=== PATIENT | female | born 1960 | race Caucasian/White ===

== ENCOUNTER 2020-05-27 15:23 | Day surgery (SDC) | payer BC, SELFPAY ==
[2020-05-27] VITALS (10 sets, daily range): BP systolic 110–146; BP diastolic 71–86; PULSE 18–92; RESP 12–66; TEMP 36.2–37; O2SAT 94–100; BMI 24.2
[2020-05-27] MEDS: LACTATED RINGERS 1,000 ML 30 ML IV CONT ×2 (15:05→17:49)
--- NOTE | 2020-05-27 15:47 | WPDANESEPPF ---
Anes - Initial Pre Proc Eval Procedure: Operation Date: 05/27/20 16:00 Proposed Procedures p Incision And Drainage Multiple Bite Wounds Right Hand - Earnest Garcia MD Date/Time: 05/27/20 15:47 Surgeon: Earnest Garcia MD Pre Op Diagnosis: Dog Bites Right Hand Patient Data Age: 60 Gender: F Height: Weight: Last Vital Signs Temp 37.0 C 05/27/20 14:51 Pulse 84 05/27/20 14:51 Resp 16 05/27/20 14:51 BP 129/86 05/27/20 14:51 Pulse Ox 100 05/27/20 14:51 Allergies Allergy/AdvReac Type Severity Reaction Status Date / Time codeine AdvReac Mild Nausea Verified 05/27/20 15:28 hydrocodone AdvReac Mild Nausea Verified 05/27/20 15:28 oxycodone [From Percocet] AdvReac Mild Nausea Verified 05/27/20 15:28 Home Medications Medication Instructions Recorded Confirmed Type cholecalciferol (vitamin D3) 2,000 unit PO DAILY 08/12/19 05/27/20 History levothyroxine 100 mcg PO DAILY 08/12/19 05/27/20 History amoxicillin-pot clavulanate 1 tablet PO BID 05/27/20 05/27/20 History Patient hx anesthesia problems: post op nausea/vomiting Family hx anesthesia problems: none PMFSH Past Medical History Medical History Breast CA Hypothyroid Anes - Eval Final PreProcedure Day of Procedure 05/27/20 15:47 Patient weight: normal Heart: regular rate and rhythm Lungs: clear to auscultation Airway: Mallampati scale class II Neurological: alert and oriented Last oral intake: >/= 8 hours ASA classification: II Emergent: no Anesthetic plan: proceed Anesthesia type and monitoring: general LMA and standard monitoring Informed Consent: The patient's anesthetic plan and its attendant risks and benefits were discussed with the patient/family/POA. Questions were solicited and answers provided to the satisfaction of the patient/family/POA.
[2020-05-27] MEDS: SCOPOLAMINE 1.5 MG PATCH TRANSDERM (15:58)
[2020-05-27] MEDS: ceFAZolin 2 GM/D5W 50 ML 2 GM/50 ML BAG IVPB (16:35)
[2020-05-27] MEDS: LIDO 1%/EPINEPHRINE 1:100,000 20 ML VIAL INFILTRATE (17:04)
[2020-05-27] MEDS: KETOROLAC 30 MG/ML VIAL (*BKC) IV PUSH (17:32)
--- NOTE | 2020-05-27 17:55 | PM.OP ---
Procedure Note - Brief Procedure Note - Brief Date of procedure: 05/27/20 Pre-op diagnosis: Dog Bites Right Hand Post-op diagnosis: same Procedure performed: Extensive Incision and Drainage of multiple infected dog bites to left hand, 10.0 cm Anesthesia: GETA Surgeon: Earnest Garcia MD Extension Service Supervisor: Freoz Estimated blood loss (mL): 5.0 Tourniquet time (min): 35 Drains: No Packing: Yes Pathology: none sent Complications: No immediate complications Condition: stable Disposition: PACU
--- NOTE | 2020-05-27 18:43 | SUR.PHASEI ---
184 - dr. samaniego at bedside talking with pt
--- NOTE | 2020-05-27 18:55 | P.OP_ITS ---
Procedure Note - Detailed Date of procedure: 05/27/20 Pre-op diagnosis: Dog Bites Right Hand Post-op diagnosis: same Procedure performed: Incision and drainage of multiple infected dog bites to the right hand, 10 cm Description of procedure: the patient's right hand was marked as she lay in the holding aguilar. She was taken to the operating placed supine on the operating table. A time-out was held and confirmed. She was given general endotracheal anesthesia. The right upper extremity was prepped and draped in usual fashion. all wounds were carefully inspected all the wounds lay on the fingers or the distal hand. They were on the palmar surface and the dorsal surface. All wounds were opened and explored to their natural depth. There was pus noted relatively superficially in 2 or 3 locations. Several of the bites however co mmunicated in the subcutaneous tissue. Wound margins were sharply debrided. Only skin was debrided. All the wounds were irrigated with saline solution. Irrigation was given by bulb syringe and amounted to 3 L. the hand was dressed in a bulky Kerlix wrap and placed on a palmar resting splint. She was given 2 g of Ancef preop. She is being admitted to the hospital floor to continue IV Zosyn. Blood loss was approximately 3 milliliter. Surgeon: Earnest Garcia MD
--- NOTE | 2020-05-27 19:05 | ADMGEN ---
This patient, Claudia Ferraro, was admitted to 2 Medical Room 260-01. Patient/family oriented to hospital policies and general routines including ID bracelet, bed and alarms, visiting hours, pain management, procedures, bathroom and other care routines, personal items, smoking policy, room service/diet, and visiting hours. Valuables list has been completed. Information on how to activate the Rapid Response Team has been discussed. Patient/Family are encouraged to report perceived risks to care and to ask questions if they do not understand what they are told or what they should do.
[2020-05-27 20:11] LABS: Estimated CRCL calculation 72 ml/min; Estimated Glomerular Filt Rate > 60
[2020-05-27] MEDS: LACTATED RINGERS 1,000 ML 100 ML IV CONT (20:23)
[2020-05-28] VITALS: BP 117/60; PULSE 76; RESP 16; TEMP 36.4; O2SAT 96
[2020-05-28 06:00] VITALS: BP 108/66; PULSE 82; RESP 18; TEMP 36.3; O2SAT 96
[2020-05-28] MEDS: LEVOTHYROXINE SODIUM 100 MCG TABLET PO (06:37)
--- NOTE | 2020-05-28 07:50 | WPDANESPN ---
Anes - Prog Note Post-Op Date/Time: 05/28/20 07:50 Cardiovascular status: normal Respiratory status: normal Airway patency: baseline Mental status: baseline Post-Op hydration status: normal Vital Signs: Last Vital Signs Temp 36.3 C L 05/28/20 06:00 Pulse 82 05/28/20 06:00 Resp 18 05/28/20 06:00 BP 108/66 05/28/20 06:00 Pulse Ox 96 05/28/20 06:00 I/O: Intake & Output 05/27/20 05/27/20 05/28/20 15:59 23:59 07:59 Intake Total 250 850 Balance 250 850 Laboratory Tests 05/27/20 19:44 05/27/20 19:44 Creatinine 0.70 Estim Creat Clear Calc 72 Estimated GFR > 60 Post-procedural complaints: none Patient Feedback: Patient satisfied with anesthetic care.
[2020-05-28] MEDS: CHOLECALCIFEROL 1,000 UNITS TABLET 2000 UNITS PO (09:22)
--- NOTE | 2020-05-28 13:35 | PM.DS ---
DS: Admitting Diagnosis Admitting Diagnosis Admitting Diagnosis: Dog Bites Right Hand DS: Discharge Diagnosis Discharge Diagnosis (1) Infected dog bite of hand including fingers: Code(s): S61.459A - Open bite of unspecified hand, initial encounter; S61.259A - Open bite of unspecified finger without damage to nail, initial encounter; L08.9 - Local infection of the skin and subcutaneous tissue, unspecified; W54.0XXA - Bitten by dog, initial encounter Status: Acute Assessment and Plan: Dressing change. Discharge. Continue Augmentin she has. F/U with Dr Garcia on Saturday. Call office in the morning. DS: Summary Time Spent with Patient Time attestation: Total time spent providing and/or coordinating discharge services:15 min. Exam Narrative: Exam Narrative: Hand redressed. Iodoform samanta left in place. Edema and erythema markedly improved. No nery pus. Slight cloudy exudate at dorsal index proximal phalanx. Slight erythema remains there. Slight tenderness between the wound and the MP joint only that digit. DS: Data Data Completed and Pending Labs on day of discharge: Labs from last 24 hours 05/27/20 19:44 Creatinine 0.70 Estim Creat Clear Calc 72 Estimated GFR > 60 Discharge Plan Discharge Patient Disposition: Home, Self-Care Discharge Instructions: Remove the Scopolamine patch that was placed behind your ear in 72 hours or less. Wash your hands after touching. Keep dressing and splint on until seen in the office on Saturday. Continue to elevate the extremity. Stand Alone Forms: General Discharge Instructions Follow-up/Referrals: Earnest Garcia MD [Physician] - Discharge Medications: No Action levothyroxine 100 mcg Tablet 100 mcg PO DAILY RF: 0 cholecalciferol (vitamin D3) 2,000 unit Tablet 2,000 unit PO DAILY RF: 0 amoxicillin-pot clavulanate 875-125 mg tablet 1 tablet PO BID RF: 0 Primary Care Provider: Flory,Charles Cooper Attending physician on admission: Earnest Garcia
[2020-05-28 14:00] VITALS: BP 120/71; PULSE 77; RESP 17; TEMP 36.5; O2SAT 96
== END 2020-05-28 15:55 | disposition home or self-care (01) ==
LOC: ANHSURGERY 15:59 → ANH2MED 05-28 09:38
PROVIDERS: PCP Internal Medicine; Visit Provider Plastic Surgery
PROC: (CPT 97597; principal; 2020-05-27 16:00)
DX: S61.451A Open bite of right hand, initial encounter (principal); S61.258A Open bite of other finger without damage to nail, initial encounter; L08.9 Local infection of the skin and subcutaneous tissue, unspecified; W54.0XXA Bitten by dog, initial encounter; L03.113 Cellulitis of right upper limb
CPT/HCPCS: 97597; 36415; 82565; A9270; J0131; J0690; J1100; J1885; J2250; J2405; J2543; J2704; J3010; J7120

== ENCOUNTER → 2020-12-09 10:33 | Outpatient (CLI) | payer BC, SELFPAY ==
--- NOTE | ~2020-12-09 | CT_ITS ---
EXAMINATION: CT abdomen w con INDICATION: Elevated liver enzymes, epigastric pain, elevated serum ferritin, history of breast cance r TECHNIQUE: Computed tomographic images of the abdomen were obtained after the administration of 100 c c of Omnipaque 350 intravenous contrast in the arterial and portal venous phases. The dose-length pro duct (DLP) was 544.86 mGy-cm. Automated exposure control and iterative reconstruction technique were employed. COMPARISON: 05/12/2008 FINDINGS: Minimal dependent atelectasis is present in the lung bases. The heart size is normal. An un changed 4 mm subpleural nodule of the right lower lobe is consistent with old granulomatous disease. Cysts of the liver measure up to 1.8 cm in the left hepatic lobe. There are changes of cholecystectom y. There is moderate enlargement of the common bile duct and intrahepatic bile ducts, increased since the comparison examination. The spleen, pancreas, and adrenal glands are normal. The kidneys are unr emarkable. There are no pathologically enlarged abdominal lymph nodes. No dilated loops of bowel are identified. There is moderate lumbar spondylosis. IMPRESSION: 1. Enlargement of the common bile duct and intrahepatic bile ducts greater than would typically be ex pected due to postcholecystectomy state. Consider further evaluation by MRCP or ERCP. Reviewed, dictated and finalized at location A. TRIPOLER IMPRESSION: 1. Enlargement of the common bile duct and intrahepatic bile ducts greater than would typically be expected due to postcholecystectomy state. Consider further evaluation by MRCP or ERCP.
[2020-12-09 10:54] LABS: Estimated Glomerular Filt Rate > 60
== END ==
DX: R74.8 Abnormal levels of other serum enzymes (principal); R10.13 Epigastric pain; R77.8 Other specified abnormalities of plasma proteins; R93.2 Abnormal findings on diagnostic imaging of liver and biliary tract
CPT/HCPCS: 74160; Q9967

== ENCOUNTER → 2020-12-29 14:28 | Outpatient (CLI) | payer BC, SELFPAY ==
--- NOTE | ~2020-12-29 | MR_ITS ---
EXAMINATION: MR MRCP wo/w con/w 3D wo ind DATE: 12/29/2020 16:09 INDICATION: Abnormal liver function tests. TECHNIQUE: Magnetic resonance imaging (MRI) of the abdomen was performed without and with 13 mL Multi Osbaldo intravenous contrast. Sequences included coronal T2-weighted FS FSE, coronal T2-weighted FSE, a xial T1-weighted LAVA, coronal FS FIESTA, axial dual-echo T1-weighted SPGR, coronal lava-FLEX, sagitt al T2-weighted FSE, axial T2-weighted FSE, and axial DWI. Thick-slab T2-weighted FSE images were obta ined for magnetic resonance cholangiopancreatography (MRCP). Maximum intensity projection 3-D reconst ructions of the volumetric data were created by the technologist. Postcontrast sequences included cor onal LAVA-flex and time course of axial T1-weighted LAVA. COMPARISON: CT abdomen 12/09/2020 FINDINGS: ABDOMEN MRI: There are cysts in the liver measuring up to 16 mm. The gallbladder is absent. There is chronic mild intrahepatic biliary duct dilatation. The spleen, pancreas, adrenal glands, and kidneys are normal. There are no dilated loops of bowel. There are no pathologically enlarged lymph nodes. Th ere is no free intraperitoneal fluid. ABDOMEN MRCP: The common duct is dilated to 14 mm. There are 4 stones in the common duct measuring up to 13 mm. IMPRESSION: 1. Choledocholithiasis with mild intrahepatic and extrahepatic biliary duct dilatation. Reviewed, dictated and finalized at location A. IMPRESSION: 1. Choledocholithiasis with mild intrahepatic and extrahepatic biliary duct dil atation.
== END ==
PROVIDERS: PCP Internal Medicine
DX: R74.8 Abnormal levels of other serum enzymes (principal); R93.3 Abnormal findings on diagnostic imaging of other parts of digestive tract; K80.50 Calculus of bile duct without cholangitis or cholecystitis without obstruction
CPT/HCPCS: 74183; 76376; A9577

== ENCOUNTER 2021-05-03 02:01 | Day surgery (SDC) | payer BC, SELFPAY ==
[2021-04-27 09:33] VITALS: BMI 25.1
[2021-05-03] MEDS: ACETAMINOPHEN 500 MG TABLET 1000 MG PO (13:19)
[2021-05-03 13:22] VITALS: BP 129/79; PULSE 64; RESP 16; TEMP 36.8; O2SAT 98; BMI 25.7
[2021-05-03] MEDS: LACTATED RINGERS 1,000 ML 30 ML IV CONT (13:42)
--- NOTE | 2021-05-03 14:12 | PM.IMHP ---
H&P: HPI History of Present Illness Date/Time: 05/03/21 14:12 61 y/o with postmenopausal bleeding. Endometrial sampling demonstrated a fragment of an endometrial polyp with simple hyperplasia without atypia. She has a history of tamoxifen treatment for 10 years. She had a benign endometrial polypectomy 5 years ago. Endometrial stripe is 10 mm. Chief Complaint: Postmenopausal bleeding Review of Systems Review of Systems: All systems reviewed & are unremarkable except as noted in HPI and below PMFSH Past Medical History Medical History (Updated 05/03/21 @ 14:20 by Austin Soto MD) Breast CA Hypothyroid Surgical History Surgical History History of cholecystectomy History of repair of rotator cuff Social History Social History Smoking status: Never smoker Second hand tobacco smoke exposure: No Alcohol intake: current Drinks per week: 3 Substance use: never Substance use type: does not use Living arrangements: with family Gender identity (if verbalized by the patient): Female Spiritual care concerns: No Meds Home Medications and Allergies Home Medications Medication Instructions Recorded Confirmed Type cholecalciferol (vitamin D3) 2,000 unit PO DAILY 08/12/19 05/03/21 History levothyroxine 100 mcg PO DAILY 08/12/19 05/03/21 History esomeprazole magnesium 40 mg PO DAILY 04/27/21 05/03/21 History oxybutynin chloride 10 mg PO DAILY 04/27/21 05/03/21 History Allergies Allergy/AdvReac Type Severity Reaction Status Date / Time codeine AdvReac Mild Nausea Verified 05/03/21 13:12 hydrocodone AdvReac Mild Nausea Verified 05/03/21 13:12 oxycodone [From Percocet] AdvReac Mild Nausea Verified 05/03/21 13:12 Vital Signs Vital Signs - 24 hr 05/03/21 13:22 Temperature 36.8 C Pulse Rate 64 Respiratory Rate 16 Blood Pressure 129/79 Pulse Oximetry 98 Exam Const: Orientation/consciousness: patient oriented x3 Other: Well-developed, well-nourished female in no acute distress. Neck: Thyroid: thyroid normal Lymphatic: no lymphadenopathy noted (in neck, axilla or inguinal nodes) Resp: Effort & Inspection: normal respiratory effort Auscultation: clear to auscultation bilaterally Cardio: Rate: regular rate Rhythm: regular rhythm Heart sounds: S1 normal heart sound present and S2 normal heart sound present GI: Other: ABD: Soft, nontender, nondistended. No guarding or rebound tenderness. No hepatosplenomegaly. : General: Yes no CVA tenderness Other: External genitalia: normal female hair distribution, without lesion. Urethral meatus: no lesion, non prolapsed. Bladder: no mass, nontender Vagina: well-estrogenized, without lesion or discharge. No cystocele or rectocele. Cervix: no lesion or discharge. Uterus: small, anteverted, freely mobile, nontender Adnexa: no mass or tenderness. Anus/perineum: no lesions, nontender Back/Spine/Pelvis: Back: no CVA tenderness Skin: General skin exam: normal color and no rashes or lesions noted Neuro: General: patient oriented x3 Extrem: Other: Extremities: nontender with no edema Psych: Mental Status: mental status grossly normal Affect: normal affect Assessment and Plan Assessment and plan (1) Postmenopausal bleeding: Code(s): N95.0 - Postmenopausal bleeding Status: Acute Assessment and Plan: Offered hysteroscopy with dilation and sharp curettage and endometrial polypectomy. She understands risks of surgery to include risks of anesthesia, risks of pain, infection, bleeding, blood products, thromboembolic phenomena and damage to adjacent structures such as bowel, bladder, ureters, blood vessels and nerves. She understands all these risks and elects to proceed with surgery. (2) Endometrial hyperplasia without atypia: Code(s): N85.00 - Endometrial hyperplasia, unspecified Status: Ac
--- NOTE | 2021-05-03 14:22 | WPDHPUPDATE1 ---
History and Physical Update Update Date/Time: 05/03/21 14:22 History and Physical has been reviewed, including an updated exam of the patient. There are NO changes in the patient's condition. Risks, benefits, and alternatives have been discussed and questions answered. Patient agrees to proceed with procedure.
--- NOTE | 2021-05-03 14:32 | WPDANESEPPF ---
Anes - Initial Pre Proc Eval Procedure: Operation Date: 05/03/21 14:45 Proposed Procedures p Hysteroscopy Dilation and Curettage with Polypectomy - Austin Soto MD Date/Time: 05/03/21 14:32 Surgeon: Austin Soto MD Pre Op Diagnosis: uterine polyps, post menopausal bleeding Patient Data Age: 61 Gender: F Height: 1.7 m Weight: 74.4 kg Last Vital Signs Temp 36.8 C 05/03/21 13:22 Pulse 64 05/03/21 13:22 Resp 16 05/03/21 13:22 BP 129/79 05/03/21 13:22 Pulse Ox 98 05/03/21 13:22 Allergies Allergy/AdvReac Type Severity Reaction Status Date / Time codeine AdvReac Mild Nausea Verified 05/03/21 13:12 hydrocodone AdvReac Mild Nausea Verified 05/03/21 13:12 oxycodone [From Percocet] AdvReac Mild Nausea Verified 05/03/21 13:12 Home Medications Medication Instructions Recorded Confirmed Type cholecalciferol (vitamin D3) 2,000 unit PO DAILY 08/12/19 05/03/21 History levothyroxine 100 mcg PO DAILY 08/12/19 05/03/21 History esomeprazole magnesium 40 mg PO DAILY 04/27/21 05/03/21 History oxybutynin chloride 10 mg PO DAILY 04/27/21 05/03/21 History Patient hx anesthesia problems: none Family hx anesthesia problems: none PMFSH Past Medical History Medical History Breast CA Hypothyroid Surgical History Surgical History History of cholecystectomy History of repair of rotator cuff Social History Social History Smoking status: Never smoker Second hand tobacco smoke exposure: No Alcohol intake: current Drinks per week: 3 Substance use: never Substance use type: does not use Living arrangements: with family Gender identity (if verbalized by the patient): Female Spiritual care concerns: No Anes - Eval Final PreProcedure Day of Procedure 05/03/21 14:32 Patient weight: normal Heart: regular rate and rhythm Lungs: clear to auscultation Airway: Mallampati scale class II Neurological: alert and oriented Last oral intake: >/= 8 hours ASA classification: II Emergent: no Anesthetic plan: proceed Anesthesia type and monitoring: general GIVS and standard monitoring Informed Consent: The patient's anesthetic plan and its attendant risks and benefits were discussed with the patient/family/POA. Questions were solicited and answers provided to the satisfaction of the patient/family/POA.
[2021-05-03] MEDS: KETOROLAC 30 MG/ML VIAL (*BKC) IV PUSH (15:22)
[2021-05-03 15:29] VITALS: BP 123/85; PULSE 79; RESP 14; O2SAT 97
--- NOTE | 2021-05-03 15:29 | W.PM.PROC2 ---
Procedure Note - Detailed Date of Procedure 05/03/21 Pre-op Diagnosis Postmenopausal bleeding Post-op Diagnosis same Procedure Performed Hysteroscopy Dilation and sharp curettage Surgeon Austin Soto MD Anesthesia MAC and local (1% lidocaine paracervical block) Findings Endometrial tissue a little thick, but no mass. Both tubal ostia seen. Description of Procedure The patient was taken to the operating room where she was prepared and draped in the usual sterile fashion in the dorsal lithotomy position. The bladder was drained with a red rubber catheter. A sterile speculum was placed into the vagina. The anterior lip of the cervix was grasped with single-tooth tenaculum. Ten mL of 1% lidocaine was administered in a paracervical block. The cervix was then gently dilated using Hegar dilators until a 7 mm dilator could be passed. Hysteroscopy was performed using sterile saline as a distention medium. Findings are as noted above. Sharp curettage was then performed, and endometrial curettings were collected on a Telfa pad and passed off to be sent to pathology. Hemostasis was excellent. Sponge, lap, needle and instrument counts were correct. The patient was awakened and taken to the recovery room in stable condition. I was present and scrubbed through the entire procedure. Implants None Estimated Blood Loss 10 Drains No Packing No Pathology yes (endometrial curettings) Complications None Condition stable Disposition PACU
[2021-05-03 15:55] VITALS: BP 129/81; PULSE 62; RESP 14; O2SAT 97
[2021-05-03 16:25] VITALS: BP 119/76; PULSE 74; RESP 16; O2SAT 95
[2021-05-03 16:35] VITALS: BP 129/82; PULSE 54; RESP 16
== END 2021-05-03 16:40 | disposition home or self-care (01) ==
PROVIDERS: PCP Internal Medicine; Visit Provider Obstetrics & Gynecology
PROC: 0U5B8ZZ Destruction of Endometrium, Via Natural or Artificial Opening Endoscopic (ICD-10-PCS; CPT 58563; principal; 2021-05-03 14:45)
DX: N95.0 Postmenopausal bleeding (principal); N85.01 Benign endometrial hyperplasia; E03.9 Hypothyroidism, unspecified; Z85.3 Personal history of malignant neoplasm of breast
CPT/HCPCS: 58558; 88305; A9270; J1885; J2250; J2704; J3010; J7030; J7120

== ENCOUNTER 2021-11-24 07:32 | Outpatient (CLI) | payer BC, SELFPAY | END 2021-11-24 07:33 | disposition home or self-care (01) | LOC: ANHSURGERY 07:39 | PROVIDERS: PCP Internal Medicine; Visit Provider Obstetrics & Gynecology | DX: Z01.818 Encounter for other preprocedural examination (principal); N95.0 Postmenopausal bleeding | CPT/HCPCS: 36415; 86850; 86900; 86901 ==

== ENCOUNTER 2021-11-29 | Day surgery (SDC) | payer BC, SELFPAY ==
[2021-08-10 09:54] VITALS: BMI 23.9
--- NOTE | 2021-08-10 10:09 | PC.NURSE ---
Addendum entered by Khushi Rodriguez RN 11/22/21 15:06: PT TO ARRIVE AT 1000 ON 11/29/21 FOR SURGERY AT 1200. Original Note: Report to the Outpatient Waiting Room, entrance under the green pavilion located off [facility], at time 11:30 on date 08/15/21. OR Time: 1:30. - You and your visitor will be asked a series of questions to screen for COVID 19 for your protection. - A mask is required within the hospital. - Only one visitor is allowed at this time. Patient visitors will be guided where to wait when not with patient. Preoperative COVID Testing Requirements: No COVID Test needed if: (proof is required; if not received patient will have Rapid Test prior to entry) - Patient has received COVID Vaccine at least 14 days prior to procedure date or - Patient has positive COVID test result within last 90 days of surgery date. COVID Test needed if above criteria is not met If not COVID vaccinated a COVID test must be conducted within 72 hours of surgery and patient is asked to isolate self from time of testing until procedure. You will go to the [facility] for your COVID testing. The [facility] is located at the corner of [address] [facility]. You will only be called if COVID results are positive and your surgeon may reschedule your elective surgery date. Patients may have clear liquids (water, carbonated beverages, clear teas, apple juice) until 3 hours prior to surgery with a maximum of 20 ounces. - No food from midnight until time of surgery - Infants may have breast milk until 4 hours before surgery, infant formula 6 hours prior to surgery. - Children will be allowed to drink immediately following surgery. If applicable, please bring a bottle or sippy cup to assist with drinking. Juice, water, soda, and popsicles are readily available. For infants on formula, please bring formula the day of surgery. Pacifiers are allowed. Take the following medications with a SIP of water the morning of surgery: LEVOTHYROXINE Medications to discontinue per physician: VITAMINS/SUPPLEMENTS Date to take last dose: 08/11/21 Please no make-up, nail rwandan, hairspray, perfume, deodorant, or body powder the day of surgery. No jewelry (including any body piercings) or valuables the day of surgery, leave them at home. Please take a shower or bath the night before, or the morning of, surgery with an antibacterial soap. Wear comfortable, loose fitting clothing. Children are encouraged to wear pajamas. - Jewelry must be removed prior to entering the operating room. Rings and piercings that are not removed may be cut off. - The hospital will not accept responsibility for valuables. - Please leave all valuables, including medications, at home the day of surgery. If you are going home after surgery, a licensed piledriver carpenter must drive you home. - NO public transportation without another adult. - We recommend that an adult stay with you for 24 hours following discharge. - We also recommend that you do not drive, make important decision, drink alcoholic beverages, or take any drugs that were not prescribed by your health care provider for at least 24 hours after your discharge time. For Pediatric surgeries, we recommend two adults accompany the child home (only one inside the building at this time). Follow any additional instructions given to you from your surgeon. Telephone instructions given to ESDRAS MAKI and asked if any additional questions and then verbalized understanding. Patient advised to call surgeon office or pre surgery nurse liaison [phone] if any additional questions.
[2021-11-22 15:01] VITALS: BMI 23.9
[2021-11-29] VITALS (9 sets, daily range): BP systolic 115–145; BP diastolic 66–91; PULSE 62–86; RESP 10–20; TEMP 36.3–36.8; O2SAT 95–100
--- NOTE | 2021-11-29 07:56 | PM.IMHP ---
H&P: HPI History of Present Illness Date/Time: 11/29/21 07:56 61 y/o with postmenopausal bleeding. She has a history of Tamoxifen treatment for ten years. She had a h-scope / D&C in April 2021 which showed benign endometrial hyperplasia without atypia. She has continued to have episodes of bleeding. A small, benign cervical polyp was removed in the office, but bleeding has continued. She is interested in definitive management at this time. Chief Complaint: Bleeding Review of Systems Review of Systems: All systems reviewed & are unremarkable except as noted in HPI and below PMFSH Past Medical History Medical History Breast CA Hypothyroid Surgical History Surgical History History of cholecystectomy History of D&C History of repair of rotator cuff Social History Social History Smoking status: Never smoker Second hand tobacco smoke exposure: No Alcohol intake: current Drinks per week: 3 Substance use: never Substance use type: does not use Living arrangements: with family Gender identity (if verbalized by the patient): Female Spiritual care concerns: No Meds Home Medications and Allergies Home Medications Medication Instructions Recorded Confirmed Type levothyroxine 100 mcg PO DAILY 08/12/19 11/22/21 History esomeprazole magnesium 40 mg PO DAILY 04/27/21 11/22/21 History oxybutynin chloride 10 mg PO DAILY 04/27/21 11/22/21 History ernhvpk-aclsrhfan-jrjl 1 tablet PO DAILY 08/10/21 11/22/21 History cholecalciferol (vitamin D3) 125 mcg PO DAILY 08/10/21 11/22/21 History [Vitamin D3] Allergies Allergy/AdvReac Type Severity Reaction Status Date / Time codeine AdvReac Mild Nausea Verified 11/22/21 15:00 hydrocodone AdvReac Mild Nausea Verified 11/22/21 15:00 oxycodone [From Percocet] AdvReac Mild Nausea Verified 11/22/21 15:00 Vital Signs BP 115/79 HR 71 Wt 162# Exam Const: Orientation/consciousness: patient oriented x3 Other: Well-developed, well-nourished female in no acute distress. Neck: Thyroid: thyroid normal Lymphatic: no lymphadenopathy noted (in neck, axilla or inguinal nodes) Resp: Effort & Inspection: normal respiratory effort Auscultation: clear to auscultation bilaterally Cardio: Rate: regular rate Rhythm: regular rhythm Heart sounds: S1 normal heart sound present and S2 normal heart sound present GI: Other: ABD: Soft, nontender, nondistended. No guarding or rebound tenderness. No hepatosplenomegaly. : General: Yes no CVA tenderness Other: External genitalia: normal female hair distribution, without lesion. Urethral meatus: no lesion, non prolapsed. Bladder: no mass, nontender Vagina: atrophic, without lesion or discharge. No cystocele or rectocele. Cervix: no lesion or discharge. Uterus: small, anteverted, freely mobile, nontender Adnexa: no mass or tenderness. Anus/perineum: no lesions, nontender Back/Spine/Pelvis: Back: no CVA tenderness Skin: General skin exam: normal color and no rashes or lesions noted Neuro: General: patient oriented x3 Extrem: Other: Extremities: nontender with no edema Psych: Mental Status: mental status grossly normal Affect: normal affect Assessment and Plan Assessment and plan (1) Endometrial hyperplasia without atypia: Code(s): N85.00 - Endometrial hyperplasia, unspecified Status: Acute Assessment and Plan: A: Postmenopausal bleeding with simple endometrial hyperplasia without atypia. P: I have offered definitive management with robotic assisted TVHBSO. She understands risks of surgery to include risks of anesthesia, risks of pain, infection, bleeding, blood products, thromboembolic phenomena and damage to adjacent structures such as bowel, bladder, ureters, blood vessels and nerves. She understands all these risks and e
[2021-11-29] MEDS: ACETAMINOPHEN 500 MG TABLET 1000 MG PO (11:13)
[2021-11-29] MEDS: LACTATED RINGERS 1,000 ML 30 ML IV CONT ×2 (11:15→13:56)
[2021-11-29] MEDS: KETOROLAC 15 MG/ML VIAL (*BKC) IV PUSH (11:23)
[2021-11-29] MEDS: SCOPOLAMINE 1.5 MG PATCH TRANSDERM (11:26)
--- NOTE | 2021-11-29 12:01 | WPDHPUPDATE1 ---
History and Physical Update Update Date/Time: 11/29/21 12:01 History and Physical has been reviewed, including an updated exam of the patient. There are NO changes in the patient's condition. Risks, benefits, and alternatives have been discussed and questions answered. Patient agrees to proceed with procedure.
--- NOTE | 2021-11-29 13:39 | W.PM.PROC2 ---
Procedure Note - Detailed Date of Procedure 11/29/21 Pre-op Diagnosis Postmenopausal vaginal bleeding Simple endometrial hyperplasia without atypia Post-op Diagnosis same Procedure Performed Robotic assisted total vaginal hysterectomy with bilateral salpingo-oophorectomy Surgeon Austin Soto MD Anesthesia general Findings Normal-appearing tubes and ovaries. Left-sided subserosal myoma. Otherwise, unremarkable uterus, cervix, anterior and posterior cul de sac, bilateral round and uterosacral ligaments. Description of Procedure The patient was taken to the operating room where general endotracheal anesthesia was administered. She was prepared and draped in the usual sterile fashion in the dorsal lithotomy position. The bladder was drained with Zuñiga catheter. The cervix was visualized and the anterior lip was grasped using a single-tooth tenaculum. The cervix was gently dilated using Hegar dilators. The NATHALIA 2 uterine manipulator was then placed and the tenaculum was removed. Gloves were changed and attention was turned to the abdomen. A supraumbilical skin incision was made with the scalpel. The Veress needle was advanced and pneumoperitoneum was administered using carbon dioxide gas. The bladeless trocar was then advanced. Intraperitoneal placement was confirmed using the laparoscope. Lateral ports and an tv production assistant port were all placed using bladeless trocars under direct laparoscopic visualization. She was placed in Trendelenburg position and the patient cart was docked. I assumed the console. The ureters were visualized bilaterally. The round ligament on the right was divided. The infundibulopelvic ligament was divided. The broad ligament was divided, skeletonizing the uterine artery on the right. The bladder was reflected away. The left side was similarly dissected. Colpotomy was performed circumferentially. The specimen was removed and passed off to be sent to pathology. The vaginal cuff was reapproximated using 0 Vicryl in interrupted [id number] fashion. The pelvis was irrigated copiously using warmed normal saline. Rigorous hemostasis was assured. HemaDerm was applied to the vaginal cuff. The pedicles were inspected once again. The ports were then withdrawn and the gas was allowed to escape. The skin incisions were reapproximated using 4 0 Monocryl in interrupted subcuticular fashion. Dermaflex was applied externally. Sponge, lap, needle and instrument counts were correct. The patient was awakened and taken to the recovery room in stable condition. I was present and scrubbed through the entire procedure. Implants None Estimated Blood Loss 20 Drains Yes (Zuñiga) Packing No Pathology yes (Uterus, cervix, bilateral tubes and ovaries) Complications None Condition stable Disposition PACU
[2021-11-29] MEDS: DEXTROSE 5%/0.45% SOD CHL 1,000 ML 125 ML IV CONT (15:22)
--- NOTE | 2021-11-29 18:57 | OBPPTRN ---
1457 Patient transferred to post room #278 via bed. Oriented to unit, room, information board, admission packet and security measures. Patient verbalizes understanding.
[2021-11-29] MEDS: ENOXAPARIN 40 MG/0.4 ML SYRINGE SUB-Q (21:01)
[2021-11-29] MEDS: DOCUSATE SODIUM 100 MG CAPSULE PO (21:01)
[2021-11-30] MEDS: IBUPROFEN 600 MG TABLET PO (04:06)
[2021-11-30 04:10] VITALS: BP 117/77; PULSE 63; RESP 16; TEMP 36.9; O2SAT 95
[2021-11-30 06:11] LABS: Basophils Percent Auto 0.4 % (0.2-1.2); Eosinophils Percent Auto 0.1 % (0-4.4); Hematocrit 38.3 % (37.0-47.0); Hemoglobin 12.7 g/dL (12.0-15.0); Immature Granulocyte Absolute 0.04 K/mm3 (0.00-0.031); Immature Granulocyte Percent A 0.4 % (0-0.5); Lymphocytes Absolute Auto 1.68 K/mm3 (0.9-3.2); Mean Corpuscular HGB Conc 33.2 g/dl (32-36); Mean Corpuscular Hemoglobin 30.9 pg (26-34); Mean Corpuscular Volume 93.2 fl (80-100); Mean Platelet Volume 11.1 fl (7.4-10.4); Monocytes Absolute Auto 0.8 K/mm3 (0.1-0.6); Monocytes Percent Auto 7.6 % (2.6-8.5); Neutrophils Absolute Auto 7.9 K/mm3 (1.3-6.7); Neutrophils Percent Auto 75.5 % (45.5-73.1); Platelet Count Result 194 k/mm3 (150-375); Red Blood Count 4.11 M/mm3 (4.2-5.4); White Blood Count 10.5 K/mm3 (4.5-10.0)
[2021-11-30] MEDS: LEVOTHYROXINE SODIUM 100 MCG TABLET PO (07:27)
[2021-11-30] MEDS: PANTOPRAZOLE 40 MG TABLET PO (07:27)
[2021-11-30] MEDS: DOCUSATE SODIUM 100 MG CAPSULE PO (07:27)
[2021-11-30 07:37] VITALS: BP 131/85; PULSE 65; RESP 18; TEMP 36.9
--- NOTE | 2021-11-30 09:03 | PM.GYNPNOP ---
RESERVOIR CARETAKER - A/P Assessment and plan (1) Postmenopausal bleeding: Code(s): N95.0 - Postmenopausal bleeding Status: Acute Assessment and Plan: A: POD#1, s/p robotic assisted TVHBSO. Doing well. P: Home to f/u 2-3 weeks in office. (2) Endometrial hyperplasia without atypia: Code(s): N85.00 - Endometrial hyperplasia, unspecified Status: Acute Postoperative Procedures: Procedures Operation Date: 11/29/21 12:00 Actual Procedure Side Surgeon p Robotic Assisted Total Vaginal Hysterectomy, Bilateral Salpingo-Oophorectomy Austin Soto MD Time Spent With Patient Time with patient: less than 15 minutes RESERVOIR CARETAKER- PN:Subj Post-Op Subjective Date/time seen: 11/30/21 09:03 Interval history: Pain OK. Tolerating diet. Voiding. Would like to go home. Exam Narrative: AVSS I/O OK ABD soft, nontender. Incisions c/d/i. EXT nontender RESERVOIR CARETAKER - PN: Obj Data Vital Signs Vital Signs: Vital Signs - 24 hr 11/29/21 10:23 11/29/21 13:49 11/29/21 14:03 Temperature 36.8 C 36.6 C Pulse Rate 74 72 62 Respiratory Rate 20 16 10 L Blood Pressure 123/81 126/82 133/86 Pulse Oximetry 100 100 100 11/29/21 14:16 11/29/21 14:30 11/29/21 14:45 Temperature Pulse Rate 62 63 68 Respiratory Rate 10 L 14 19 Blood Pressure 145/76 H 136/91 H 141/91 H Pulse Oximetry 97 99 100 11/29/21 14:57 11/29/21 19:20 11/29/21 23:15 Temperature 36.3 C L 36.6 C 36.4 C Pulse Rate 64 86 83 Respiratory Rate 16 16 16 Blood Pressure 134/77 133/86 115/66 Pulse Oximetry 99 95 95 11/30/21 04:10 11/30/21 07:37 Temperature 36.9 C 36.9 C Pulse Rate 63 65 Respiratory Rate 16 18 Blood Pressure 117/77 131/85 Pulse Oximetry 95 Intake/Output Intake/Output: Intake & Output 11/27/21 11/28/21 11/29/21 11/30/21 23:59 23:59 23:59 23:59 Intake Total 2470 1100 Output Total 2920 1400 Balance -450 -300 Meds/Results Medications: Active Medications Generic Name Dose Route Start Last Admin Trade Name Freq PRN Reason Stop Dose Admin Docusate Sodium 100 mg 11/29/21 17:00 11/30/21 07:27 Docusate Sodium 100 Mg Capsule PO 100 mg BID RONNI Administration Enoxaparin Sodium 40 mg 11/29/21 21:00 11/29/21 21:01 Enoxaparin 40 Mg/0.4 Ml Syringe SUB-Q 40 mg HS RONNI Administration Dextrose/Sodium Chloride 1,000 mls @ 125 mls/hr 11/29/21 14:49 11/29/21 23:30 Dextrose 5% Sodium Chloride 0.45% IV CONT Not Given .Q8H RONNI Ibuprofen 600 mg 11/29/21 14:49 11/30/21 04:06 Ibuprofen 600 Mg Tablet PO 600 mg Q6H PRN Administration Cramping Levothyroxine Sodium 100 mcg 11/30/21 06:30 11/30/21 07:27 Levothyroxine Sodium 100 Mcg Tablet PO 100 mcg DAILY@0630 RONNI Administration Metoclopramide HCl 10 mg 11/29/21 14:49 Metoclopramide Hcl Inj 10 Mg/2 Ml Vial IV PUSH Q6H PRN Nausea Morphine Sulfate 4 mg 11/29/21 14:49 Morphine Sulfate (*Crx) 4 Mg/Ml Inj IV PUSH Q4H PRN Pain Rated 7-10 Naloxone HCl 0.1 mg 11/29/21 14:49 Naloxone Hcl 0.4 Mg/Ml Vial IV PUSH Q2M PRN Respiratory rate less than 10 Ondansetron HCl 4 mg 11/29/21 14:49 Ondansetron Inj 4 Mg/2 Ml Vial IV PUSH Q6H PRN Nausea Oxybutynin Chloride 10 mg 11/30/21 09:00 11/30/21 07:26 Oxybutynin Chloride Xl 5 Mg Tab.Er.24 PO 10 mg DAILY RONNI Administration Pantoprazole Sodium 40 mg 11/30/21 09:00 11/30/21 07:27 Pantoprazole 40 Mg Tablet PO 12/30/21 08:59 40 mg DAILY RONNI Administration Simethicone 80 mg 11/29/21 14:49 Simethicone 80 Mg Tab.Chew PO Q2H PRN Gas Labs CBC & Chem 7: 11/30/21 04:18 Labs: Laboratory Results - last 24 hr 11/30/21 04:18 WBC 10.5 H RBC 4.11 L Hgb 12.7 Hct 38.3 MCV 93.2 MCH 30.9 MCHC 33.2 RDW 13.0 Plt Count 194 MPV 11.1 H Immature Gran % (Auto) 0.4 Neut % (Auto) 75.5 H Lymph % (Auto) 16.0 L [place] % (Auto) 7.6 Eos % (Auto) 0.1 Baso % (Auto) 0.4
--- NOTE | 2021-11-30 09:04 | PM.DS ---
DS: Admitting Diagnosis Discharge Date 11/30/21 Admitting Diagnosis Postmenopausal bleeding Simple endometrial hyperplasia without atypia DS: Discharge Diagnosis Discharge Diagnosis (1) Endometrial hyperplasia without atypia: Code(s): N85.00 - Endometrial hyperplasia, unspecified Status: Acute (2) Postmenopausal bleeding: Code(s): N95.0 - Postmenopausal bleeding Status: Acute DS: Summary Hospital Course Hospital Course: Admitted to the hospital on the date of scheduled surgery. Did well postop and was able to go home on POD1 DS: Data Data Completed and Pending Pending studies at discharge: Pending at discharge 11/29/21 13:06 Surgical [PTH] Routine Labs on day of discharge: Labs from last 24 hours 11/30/21 04:18 WBC 10.5 H RBC 4.11 L Hgb 12.7 Hct 38.3 MCV 93.2 MCH 30.9 MCHC 33.2 RDW 13.0 Plt Count 194 MPV 11.1 H Immature Gran % (Auto) 0.4 Neut % (Auto) 75.5 H Lymph % (Auto) 16.0 L [place] % (Auto) 7.6 Eos % (Auto) 0.1 Baso % (Auto) 0.4 Lymph # (Auto) 1.68 [place] # (Auto) 0.8 H Eos # (Auto) 0.0 Baso # (Auto) 0.0 Abs Immat Gran (auto) 0.04 H Absolute Neuts (auto) 7.9 H Absolute Nucleated RBC 0.0 Nucleated RBC % 0.0 Discharge Plan Discharge Patient Disposition: Home, Self-Care Discharge Instructions: Remove the Scopolamine patch that was placed behind your ear in 72 hours or less. Wash your hands after touching. Stand Alone Forms: General Discharge Instructions Follow-up/Referrals: Austin Soto MD [Physician] - 3 Weeks Discharge Medications: New ibuprofen 600 mg tablet 600 mg PO Q6H PRN (Reason: cramps) Qty: 30 RF: 0 Continued [id number] Tablet 1 tablet PO DAILY RF: 0 cholecalciferol (vitamin D3) [Vitamin D3] 125 mcg (5,000 unit) Tablet 125 mcg PO DAILY RF: 0 levothyroxine 100 mcg Tablet 100 mcg PO DAILY RF: 0 oxybutynin chloride 10 mg tablet extended release 24hr 10 mg PO DAILY RF: 0 esomeprazole magnesium 40 mg capsule,delayed release(DR/EC) 40 mg PO DAILY RF: 0
== END 2021-11-30 09:50 | disposition home or self-care (01) ==
LOC: ANHSURGERY 09:54 → ANHOB2 17:55
PROVIDERS: PCP Internal Medicine; Visit Provider Obstetrics & Gynecology
PROC: (CPT 58552; principal; 2021-11-29 12:00)
DX: N95.0 Postmenopausal bleeding (principal); N85.01 Benign endometrial hyperplasia; D25.1 Intramural leiomyoma of uterus; D25.2 Subserosal leiomyoma of uterus; N73.6 Female pelvic peritoneal adhesions (postinfective); D27.0 Benign neoplasm of right ovary; E03.9 Hypothyroidism, unspecified; Z79.810 Long term (current) use of selective estrogen receptor modulators (SERMs); Z85.3 Personal history of malignant neoplasm of breast
CPT/HCPCS: 58552; S2900; 36415; 85025; 88307; 99199; A9270; J1100; J1170; J1650; J1885; J2250; J2405; J2704; J2710; J3010; J7030; J7120

== ENCOUNTER 2024-09-28 07:00 | Outpatient (NON) | payer OTHER, SELFPAY | END 2024-09-28 07:01 | disposition home or self-care (01) | LOC: ANHLAB 09-29 09:45 | PROVIDERS: PCP Internal Medicine; Visit Provider Surgery | DX: L72.8 Other follicular cysts of the skin and subcutaneous tissue (principal); D23.4 Other benign neoplasm of skin of scalp and neck | CPT/HCPCS: 88305 ==

== ENCOUNTER 2024-09-28 09:16 | Day surgery (SDC) | payer OTHER, SELFPAY ==
[2024-09-08 14:35] VITALS: BMI 25.8
[2024-09-28] VITALS (7 sets, daily range): BP systolic 135–150; BP diastolic 79–99; PULSE 71–86; RESP 10–16; TEMP 36.9; O2SAT 74–100
--- NOTE | 2024-09-28 10:27 | WPDHPUPDATE1 ---
History and Physical Update Update Date/Time: 09/28/24 10:27 History and Physical has been reviewed, including an updated exam of the patient. There are NO changes in the patient's condition. Risks, benefits, and alternatives have been discussed and questions answered. Patient agrees to proceed with procedure.
[2024-09-28] MEDS: LIDO 1%/EPINEPHRINE 1:100,000 10 ML VIAL 30 ML INFILTRATE (11:43)
[2024-09-28] MEDS: BUPivacaine HCL 0.5% PF 30 ML VIAL INFILTRATE (11:43)
--- NOTE | 2024-09-28 11:54 | W.PM.PROC2 ---
Procedure Note - Detailed Date of Procedure 09/28/24 Pre-op Diagnosis Sebaceous Cyst Left Upper Back, Skin Lesion Right Neck Post-op Diagnosis Same Procedure Performed Excision left upper back sebaceous cyst with 5cm intermediate layered wound closure. Excision right anterior neck cyst with 2cm intermediate layered wound closure. Surgeon Gil Hope MD Anesthesia Local Indications Patient is a 64-year-old female presented with enlarging subcutaneous mass on her left upper back region. On clinical examination it appeared to be consistent with a noninfected sebaceous cyst. She also complained of a slowly enlarging small lesion on her right anterior neck region and on examination that seem to be excess with a very small cyst but was enlarging as well. She presents now for excision of both of these cysts. Findings The left upper back sebaceous cyst measured approximately 3x1.5x1cm. It was completely excised and sent to pathology for examination. Required a 5cm intermediate layered wound closure. The right anterior neck lesion measured 1x0.5x0.3cm and was likely a cyst as well. It was completely excised out sent to pathology for examination. It was closed with a 2cm intermediate layered wound closure. Description of Procedure After informed consent was obtained patient was brought to the operating room she was placed on the prone position on the operating table. The area the left upper back region was then prepped and draped usual sterile fashion. A time-out was then performed correctly identifying the patient as well as procedure to be performed. He was verified. She was not given any antibiotics IV as there was no back IV started. I 1st started by anesthetized the area around the cyst with 1% lidocaine mixed with 0.5% Marcaine in a 50 50 mixture with some epinephrine. After adequate anesthesia had been achieved I made a transverse elliptical incision to include the whole cyst wall within the ellipse is tissue I excised. I carried the incision deeply down through the dermis of the skin and then utilizing electrocautery I completely excised out the tissue when core bring the whole cyst wall without rupture of the wall. The cyst measured approximately 3x1.5x1cm. It was sent to pathology for examination. Hemostasis was then achieved incision utilized electrocautery. I then irrigated with sterile saline solution. The wound was then closed with a 5cm intermediate layered wound closure. Interrupted layers of 2-0 and 3-0 Vicryl sutures were placed in subcutaneous tissues. The skin edges were approximated utilizing a running subcuticular 4-0 Monocryl suture. The incision was then cleaned the skin glue was applied. I then had the patient turned over onto her back. This then exposed the right anterior neck region. That area was then prepped and draped usual sterile fashion. Again the site marking was verified I then anesthetized this area utilizing same local anesthetic mixture. A oblique small elliptical incision was made deeply down to the dermis of the skin. The ellipse of skin and underlying subcutaneous tissue completely encompassed the cystic lesion. It measured approximately 1x0.5x0.3cm. It was sent to pathology separately from the back cyst for examination. I then proceeded to perform a 2cm intermediate layered wound closure. Interrupted 4-0 Monocryl sutures were placed in the subcutaneous tissues. The skin edges were approximated utilizing a running subcuticular 4 Monocryl suture. Incision was then cleaned the skin glue was applied as well. The patient tolerated the procedure well no complications. All sponges, needles, and instrument counts were correct at the end procedure. EBL was _10__cc. The patient was awakened and taken to recovery in stable and satisfactory condition. Implants None Estimated Blood Loss 10 Drains No Packing No Pathology Yes ( left upper back sebaceous cyst and right anterior neck cyst sent to pathology separately examination.) Complications No immediate complications Condition Stable Disposition Same day [facility] Billing Surgery - Charge Forward: Surgery Billing
== END 2024-09-28 12:01 ==
PROVIDERS: PCP Internal Medicine; Visit Provider Surgery
CPT/HCPCS: 11406; 11420; 12032; 12041

== ENCOUNTER 2025-04-30 08:41 | Outpatient (CLI) | payer MEDICARE, SELFPAY ==
--- NOTE | ~2025-04-30 | DEXA_ITS ---
Bone Density Report Name: ESDRAS MAKI Age: 65 Sex: Female Ethnicity: White Date of : 1960 Indication: postmenopausal; screening for osteoporosis; height loss; cancer; hysterectomy; Referring Provider: CRISTI, STAN Cooper Study: Bone densitometry was performed. Exam Date: April 30, 2025 Accession number: [id number] Bone Density: Region BMD T-score Z-score Classification AP Spine(L1-L4) 1.199 1.4 3.2 Normal Femoral Neck (Left) 0.751 -0.9 0.6 Normal Total Hip (Left) 1.006 0.5 1.8 Normal Femoral Neck (Right) 0.890 0.4 1.9 Normal Total Hip (Right) 1.063 1.0 2.2 Normal Total Hip Mean 1.034 0.8 2.0 Normal World Health Organization criteria for BMD impression classify patients as: Normal (T-score at or above -1.0), Osteopenia (T-score between -1.0 and -2.5), or Osteoporosis (T-score at or below -2.5). 10-year Fracture Risk: FRAX not reported because: All T-scores for Spine Total, Hip Total, Femoral Neck at or above -1.0 Clinical Information Provided by Patient: Has used the following medications: Vitamin D, Calcium Has the following medical conditions: Cancer, Hysterectomy Patient maximum height was 67 Menopause Age: 52 No regular weight bearing exercise Drinks caffeinated beverages Onset of menses at age 13 Number of children 2 Impression: The patient has normal bone mass. Discussion: BONE DENSITY IS ABOVE THE MINIMUM DESIRABLE LEVEL AT ALL SKELETAL SITES TESTED. This patient?s bone mineral density is above the minimum desirable level (T-score -1.0 or better) at all sites measured. The patient should follow a healthful lifestyle (good nutrition with adequate calcium and vitamin D, and appropriate weight-bearing exercise). Follow-Up: Consider repeating this study in 5 years or sooner if there is some new clinical indication. Reported by: JACOBO on 04/30/2025 9:19:00 AM. Reviewed, dictated and finalized at location A.
== END 2025-04-30 08:42 | disposition home or self-care (01) ==
PROVIDERS: PCP Internal Medicine; Visit Provider Internal Medicine
DX: M81.0 Age-related osteoporosis without current pathological fracture (principal)
CPT/HCPCS: 77080